=== PATIENT | male | born 1990 ===

== ENCOUNTER 2017-08-24 09:51 | Emergency (ER) | payer OTHER ==
[2017-08-24 09:57] VITALS: BP 124/67; PULSE 68; RESP 16; TEMP 98.2
[2017-08-24 10:00] VITALS: O2SAT 98
--- NOTE | 2017-08-24 10:22 | ED PDOC ---
HPI: Eye Injury/Pain Time Seen by Provider: 08/24/17 10:03 Chief Complaint (Nursing): Eye Problem Chief Complaint (Provider): Redness eyes History Per: Patient History/Exam Limitations: no limitations Onset/Duration Of Symptoms: Days (yesterday evening) Current Symptoms Are (Timing): Still Present Injury To Eye?: No Additional Complaint(s): Pt. was doing well and then noticed both eyes start burning and itchy since last night. No injury and nothing went into eyes. No eyelid pain. No numbness , tingles, weakness, headaches, dizziness, neck pain, chest pain, dyspnea. Has a cough and nasal congestion. No one else with eye issues. No fever. Sees clear. Noted both eyes with redness. Past Medical History Reviewed: Nursing Documentation, Vital Signs Vital Signs: Last Vital Signs Temp 98.2 F 08/24/17 09:55 Pulse 68 08/24/17 09:55 Resp 16 08/24/17 09:55 BP 124/67 08/24/17 09:55 Pulse Ox 98 08/24/17 09:59 - Medical History PMH: No Chronic Diseases - Surgical History Surgical History: Appendectomy - Family History Family History: States: Unknown Family Hx - Living Arrangements Living Arrangements: With Family - Social History Current smoker - smoking cessation education provided: No Alcohol: None Drugs: Denies - Home Medications Home Medications: Ambulatory Orders Medication Instructions Recorded Ciprofloxacin HCl [Cipro] 500 mg PO BID #28 tab 09/05/14 Metronidazole [Flagyl] 500 mg PO Q8 #42 tab 09/05/14 Oxycodone HCl/Acetaminophen 1 tab PO Q6 #14 tab 09/05/14 [Percocet 325 mg-5 mg] Amoxicillin/Clavulanate [Augmentin 1 tab PO BID #20 tab 01/05/16 875 MG-125 MG] traMADol [Ultram] 50 mg PO Q6H PRN #20 tab 01/05/16 Polymyxin/Trimethoprim Sulfate 2 drop BOTHEYES Q6H 7 Days bottle 08/24/17 [Polytrim Ophth Soln] - Allergies Allergies/Adverse Reactions: Allergies Allergy/AdvReac Type Severity Reaction Status Date / Time No Known Allergies Allergy Verified 09/04/14 05:44 Review of Systems Constitutional: Negative for: Fever, Weakness Eyes: Positive for: Conjunctivae Inflammation, Redness. Negative for: Vision Change, Eyelid Inflammation ENT: Positive for: Nose Congestion. Negative for: Ear Pain, Ear Discharge Respiratory: Positive for: Cough. Negative for: Shortness of Breath, Hemoptysis Gastrointestinal: Negative for: Nausea, Vomiting, Abdominal Pain Musculoskeletal: Negative for: Neck Pain, Shoulder Pain, Arm Pain Skin: Negative for: Rash Neurological: Negative for: Weakness, Numbness, Headache Physical Exam - Reviewed Nursing Documentation Reviewed: Yes Vital Signs Reviewed: Yes - Physical Exam Appears: Positive for: Non-toxic, No Acute Distress Head Exam: Positive for: ATRAUMATIC, NORMAL INSPECTION, NORMOCEPHALIC Eye Exam: Positive for: EOMI, PERRL, Conjunctival injection (b/l), Other (no fluorescein uptake b/l). Negative for: Periorbital swelling, Periorbital tenderness, Scleral icterus ENT: Positive for: Normal ENT Inspection, Nasal Congestion. Negative for: Pharyngeal Erythema Neck: Positive for: Normal, Painless ROM, Supple Cardiovascular/Chest: Positive for: Regular Rate, Rhythm Respiratory: Positive for: CNT, Normal Breath Sounds Back: Positive for: Normal Inspection Extremity: Positive for: Normal ROM. Negative for: Tenderness, Pedal Edema Neurologic/Psych: Positive for: Alert, Oriented - ECG O2 Sat by Pulse Oximetry: 98 Pulse Ox Interpretation: Normal - Progress ED Course And Treament: 1040: Stable. AAOx3. Pain free. Tolerated PO. Fu with pcp. Disposition - Clinical Impression Clinical Impression: Conjunctivitis, URI (upper respiratory infection) - Patient ED Disposition Is Patient to be Admitted: No Counseled Patient/Family Regarding: Diagnosis, Need For Followup, Rx Given - Disposition Referrals: [facility] [Outside] - 08/28/17 Disposition: Routine/Home Disposition Time: 10:41 Condition: STABLE Additional Instructions: Return if not better in 3 days. Prescriptions: Polymyxin/Trimethoprim Sulfate [Polytrim Ophth Soln] 2 drop BOTHEYES Q6H 7 Days bottle Instructions: Conjunctivitis (ED), Upper Respiratory Infection (ED) Print Language: JAPANESE
[2017-08-24] MEDS ORDERED: Fluorescein 1 mg Ophthalmic Strip ONE (10:37)
== END 2017-08-24 11:03 | disposition home or self-care (01) ==
LOC: H.ER 09:51
DX: H10.9 Unspecified conjunctivitis (principal); J06.9 Acute upper respiratory infection, unspecified

== ENCOUNTER 2017-08-29 01:11 | Emergency (ER) | payer SELFPAY ==
[2017-08-29 01:31] VITALS: BP 114/78; PULSE 61; RESP 16; TEMP 98.1; O2SAT 97
--- NOTE | 2017-08-29 03:17 | ED PDOC ---
HPI: Eye Injury/Pain Time Seen by Provider: 08/29/17 02:15 Chief Complaint (Nursing): Eye Problem Chief Complaint (Provider): Exca History Per: Patient History/Exam Limitations: no limitations Onset/Duration Of Symptoms: Days (4 days ago) Current Symptoms Are (Timing): Still Present Additional Complaint(s): 27 y/o male, who was last seen on in the ED 4 days ago for bilateral conjunctivitis and was given Polymyxin/Trimethoprim Sulfate eye drops. However, he presents to the ED again complaining o increased burning sensation to both eyes, even though he has been applying the given eye drops every 6 hours. After being seen by the provider, patient reports of pain being resolved and feels a less irritating sensation. states no new exposures or foreign body in eye. Furthermore, the patient denies anything going into his eyes, eyelid pain , headache or dizziness. Past Medical History Reviewed: Historical Data, Nursing Documentation, Vital Signs Vital Signs: Last Vital Signs Temp 98.1 F 08/29/17 01:27 Pulse 61 08/29/17 01:27 Resp 16 08/29/17 01:27 BP 114/78 08/29/17 01:27 Pulse Ox 97 08/29/17 01:27 - Medical History PMH: Crohn's Disease - Surgical History Surgical History: Appendectomy - Family History Family History: States: Unknown Family Hx - Living Arrangements Living Arrangements: With Family - Home Medications Home Medications: Ambulatory Orders Medication Instructions Recorded Ciprofloxacin HCl [Cipro] 500 mg PO BID #28 tab 09/05/14 Metronidazole [Flagyl] 500 mg PO Q8 #42 tab 09/05/14 Oxycodone HCl/Acetaminophen 1 tab PO Q6 #14 tab 09/05/14 [Percocet 325 mg-5 mg] Amoxicillin/Clavulanate [Augmentin 1 tab PO BID #20 tab 01/05/16 875 MG-125 MG] traMADol [Ultram] 50 mg PO Q6H PRN #20 tab 01/05/16 Polymyxin/Trimethoprim Sulfate 2 drop BOTHEYES Q6H 7 Days bottle 08/24/17 [Polytrim Ophth Soln] - Allergies Allergies/Adverse Reactions: Allergies Allergy/AdvReac Type Severity Reaction Status Date / Time No Known Allergies Allergy Verified 08/29/17 01:26 Review of Systems ROS Statement: Except As Marked, All Systems Reviewed And Found Negative Eyes: Positive for: Pain (burning sensation), Conjunctivae Inflammation, Other ( no eyelid pain) Neurological: Negative for: Headache, Dizziness Physical Exam - Reviewed Nursing Documentation Reviewed: Yes Vital Signs Reviewed: Yes - Physical Exam Appears: Positive for: Non-toxic, No Acute Distress Head Exam: Positive for: ATRAUMATIC Skin: Positive for: Normal Color, Warm Eye Exam: Positive for: EOMI, PERRL, Conjunctival injection (bilateral injected sclera due to conjunctivitis. no foreign body noted. no sty noted. no discharge from eye. ). Negative for: Nystagmus, Periorbital swelling, Periorbital tenderness, Scleral icterus Neurologic/Psych: Positive for: Alert, Oriented - ECG O2 Sat by Pulse Oximetry: 97 (RA) Pulse Ox Interpretation: Normal Medical Decision Making Medical Decision Making: Time: --02:25 Impression: --Conjunctivitis - Plan: --Finish eye medication and follow up with opthamologist 1-2 d. Reassess --3:20 Patient's condition has improved and is ready to be discharged home Scribe Attestation: Documented by Blake Cerrato acting as a scribe for Jeancarlos Tyson MD. Provider Attestation: All medical record entries made by the Scribe were at my direction and personally dictated by me. I have reviewed the chart and agree that the record accurately reflects my personal performance of the history, physical exam, medical decision making, and the department course for this patient. I have also personally directed, reviewed, and agree with the discharge instructions and disposition. Disposition - Clinical Impression Clinical Impression: Eye infection, Conjunctivitis - Patient ED Disposition Is Patient to be Admitted: No Counseled Patient/Family Regarding: Diagnosis, Need For Followup - Disposition Referrals: [facility] [Outside] Zohaib Hoang MD [Staff Provider] - Disposition: Routine/Home Disposition Time: 03:25 Condition: IMPROVED Additional Instructions: finish eye medication that was given to you as instructed use good handwashing follow up with opthalmologist in 1-2 days return to the ED with any worsening or concerning symptoms Instructions: Conjunctivitis (ED) Forms: [employer] (Yoruba) Print Language: JAPANESE
== END 2017-08-29 04:00 | disposition home or self-care (01) ==
LOC: H.ER 01:11
DX: H10.9 Unspecified conjunctivitis (principal); K50.90 Crohn's disease, unspecified, without complications